=== PATIENT | female | born 2000 | race Caucasian/White ===

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

== ENCOUNTER 2023-01-07 22:33 | Emergency (ER) | payer SELFPAY ==
[2023-01-07 22:37] VITALS: BP 120/63; PULSE 57; RESP 18; TEMP 36.6; O2SAT 100
[2023-01-07 22:52] LABS: Basophils Absolute Auto 0.1 K/mm3 (0.0-0.1); Basophils Percent Auto 0.4 % (0.2-1.2); Eosinophils Percent Auto 0.2 % (0-4.4); Hematocrit 37.7 % (37.0-47.0); Hemoglobin 12.4 g/dL (12.0-15.0); Immature Granulocyte Absolute 0.03 K/mm3 (0.00-0.031); Immature Granulocyte Percent A 0.2 % (0-0.5); Lymphocytes Absolute Auto 2.69 K/mm3 (0.9-3.2); Lymphocytes Percent Auto 21.7 % (18.3-44.2); Mean Corpuscular HGB Conc 32.9 g/dl (32-36); Mean Corpuscular Hemoglobin 29.7 pg (26-34); Mean Corpuscular Volume 90.4 fl (80-100); Monocytes Absolute Auto 0.8 K/mm3 (0.1-0.6); Monocytes Percent Auto 6.7 % (2.6-8.5); Neutrophils Absolute Auto 8.8 K/mm3 (1.3-6.7); Neutrophils Percent Auto 70.8 % (45.5-73.1); Platelet Count Result 396 k/mm3 (150-375); Red Blood Count 4.17 M/mm3 (4.2-5.4); Red Cell Distribution Width 14.3 % (11.5-14.5); White Blood Count 12.4 K/mm3 (4.5-10.0)
[2023-01-07 23:10] LABS: Alanine Aminotransferase 19 U/L (6-35); Albumin Level 4.6 g/dL (3.5-5.1); Alkaline Phosphatase 42 U/L (38-126); Anion Gap 10 mmol/L (8-16); Aspartate Amino Transferase 25 U/L (14-36); Blood Urea Nitrogen 13 mg/dL (7-17); Calcium 9.1 mg/dL (8.4-10.2); Carbon Dioxide 22 mmol/L (22-30); Chloride 102 mmol/L (98-107); Estimated CRCL calculation 123 ml/min; Estimated Glomerular Filt Rate > 60; Glucose 91 mg/dL (65-110); Lipase 90 U/L (23-300); Potassium 3.9 mmol/L (3.4-5.0); Sodium 134 mmol/L (137-145)
[2023-01-08] MEDS: SODIUM CHLORIDE 0.9% IV 2,000 ML 999 ML IV CONT (00:51)
[2023-01-08] MEDS: ONDANSETRON INJ 4 MG/2 ML VIAL IV PUSH (00:52)
[2023-01-08] MEDS: FAMOTIDINE 20 MG/2 ML VIAL IV PUSH (00:52)
--- NOTE | 2023-01-08 01:36 | ED.GENADULT ---
HPI - General Adult General Chief complaint: Nausea/Vomiting/Diarrhea Stated complaint: N/V/D x 2 days Time Seen by Provider: 01/07/23 23:55 History of Present Illness HPI narrative: this is a 22-year-old female presenting with 2 days of nausea vomiting and diarrhea. She has been unable to keep down water. She was seen in urgent care where she was treated with Zofran ODT and was able to tolerate p.o.. However she was discharged with Zofran pills and has not been able to keep those down. She denies fever chills URI symptoms, chest pain difficulty breathing abdominal pain urinary symptoms. Patient is daily marijuana user. Related Data Allergies Allergy/AdvReac Type Severity Reaction Status Date / Time No Known Allergies Allergy Verified 01/07/23 23:55 [facility] Past Medical History Medical History Irregular periods No active medical problems Family History Family History Grandparent Diabetes mellitus maternal grandmother Hypertension maternal grandmother paternal grandfather Father Hypertension Acute myocardial infarction Social History Social History Smoking status: Never smoker Tobacco type: e-cigarettes/vaping Alcohol intake: never Substance use: current Substance use type: marijuana Other substance usage details: daily Living arrangements: other Additional living arrangements comments: single Occupation/Education: occupation Additional occupation/education comments: kitchen food prep Gender identity (if verbalized by the patient): Female Sexual Orientation (if Verbalized by the Patient): Bisexual Exam Narrative: APPEARANCE: No apparent distress. Head: atraumatic. EYES: EOMI, NOSE: Atraumatic NECK: Trachea midline RESPIRATORY: No increased rate of breathing, clear to auscultation CARDIOVASCULAR: RRR, ABDOMINAL: Non-distended Soft nontender no guarding rebound MUSCULOSKELETAl: No obvious deformities NEURO: Alert. Moving 4/4 extremities SKIN:: Warm, dry. Normal color PSYCHIATRIC: Normal affect Course Vital Signs Vital signs: Vital Signs Temperature 97.9 F 01/07/23 22:37 Pulse Rate 57 L 01/07/23 22:37 Respiratory Rate 18 01/07/23 22:37 Blood Pressure 120/63 01/07/23 22:37 Pulse Oximetry 100 01/07/23 22:37 Oxygen Delivery Room Air 01/07/23 22:37 Temperature 97.9 F 01/07/23 22:37 Pulse Rate 57 L 01/07/23 22:37 Respiratory Rate 18 01/07/23 22:37 Blood Pressure 120/63 01/07/23 22:37 Pulse Oximetry 100 01/07/23 22:37 Oxygen Delivery Room Air 01/07/23 22:37 Medical Decision Making MDM Narrative Medical decision making narrative: -Course: 22-year-old female presenting with nausea vomiting diarrhea. Patient was fluid rehydrated given antiemetics. She is tolerating p.o.. Vital signs stable and abdominal exam benign. History and physical are consistent with gastroenteritis although there may be a component of cyclic vomiting. Patient was discharged with return precautions. Urine was lost by the lab. At this point patient is feeling better and did not want to provide another sample and wait for results. No urinary symptoms or high concern for UTI/pyelo. 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 -Interventions: 2 L normal saline, 4 mg Zofran, 20 mg Pepcid -Shared decision making / Disposition: discharge -RX Zofran ODT Vital Signs Vital Signs: Vital Signs Temperature 97.9 F 01/07/23 22:37 Pulse Rate 57 L 09/0
== END 2023-01-08 02:25 | disposition home or self-care (01) ==
PROVIDERS: Emergency Provider Emergency Medicine
DX: K52.9 Noninfective gastroenteritis and colitis, unspecified (principal); F17.290 Nicotine dependence, other tobacco product, uncomplicated
CPT/HCPCS: 36415; 80053; 81025; 83690; 85025; 96361; 96374; 96375; 99284; J2405; J7030